=== PATIENT | male | born 1965 | race Two or more races ===

== ENCOUNTER → 2017-10-08 | Emergency (ER) | payer OTHER ==
[~2017-10-08] VITALS: Ht 172.7 cm; Wt 120.2 kg
== END | disposition home or self-care (01) ==
LOC: ER 11:40 → EDBD 11:58 → ER 11:58
DX: J11.1 Influenza due to unidentified influenza virus with other respiratory manifestations (principal); B34.9 Viral infection, unspecified

== ENCOUNTER 2018-02-24 07:33 | Emergency (ER) | payer OTHER ==
[~2018-02-24] VITALS: Ht 152.4 cm; Wt 127.0 kg
== END 2018-02-24 11:02 | disposition home or self-care (01) ==
LOC: ER 07:33 → EDBD 07:38 → ER 11:02
DX: J32.8 Other chronic sinusitis (principal); R51 Headache

== ENCOUNTER 2018-02-24 17:33 | Emergency (ER) | payer OTHER ==
[~2018-02-24] VITALS: Ht 170.2 cm; Wt 127.0 kg
== END 2018-02-24 18:19 | disposition home or self-care (01) ==
LOC: ER 17:33
DX: J01.00 Acute maxillary sinusitis, unspecified (principal)

== ENCOUNTER 2019-09-09 13:09 | Emergency (ER) | payer OTHER ==
[~2019-09-09] VITALS: Ht 152.4 cm; Wt 127.0 kg
== END 2019-09-09 18:23 | disposition home or self-care (01) ==
LOC: ER 13:09
DX: R07.89 Other chest pain (principal)

== ENCOUNTER 2023-10-12 10:19 | Emergency (ER) | payer OTHER ==
[~2023-10-12] VITALS: Ht 172.7 cm; Wt 117.9 kg
[2023-10-12] MEDS ORDERED: ZESTRIL2.5 MG PO (10:44)
[2023-10-12] MEDS ORDERED: GLUMETZA500 MG PO (10:44)
[2023-10-12] MEDS ORDERED: ADULT ASPIRIN81 MG PO (10:45)
[2023-10-12 11:40] LABS: HEMATOCRIT 52.8 % (39.0-48.0); MEAN CELL VOLUME 86.7 fL (80.0-100.00); MEAN CORPUSCULAR HEMOGLOBIN 29.6 pg (27.00-32.0); MEAN CORPUSCULAR HGB CONC 34.1 g/dl (32.0-36.0); PLATELET COUNT 324 K/uL (150-450); RED BLOOD COUNT 6.09 M/uL (4.00-6.00); RED CELL DISTRIBUTION WIDTH 13.8 % (11.5-14.5)
[2023-10-12 11:52] LABS: ERYTHROCYTE SEDIMENTATION RATE 7 mm/hr
[2023-10-12 12:05] LABS: ALBUMIN 3.8 gm/dL (3.4-5.0); BILIRUBIN TOTAL 0.62 mg/dL (0.3-1.2); CALCIUM 10.2 mg/dL (8.5-10.1); CREATININE SERUM 1.12 mg/dL (0.70-1.30); GFR 67.34; GLOBULINA 4.3 G/DL (2.4-3.5); TOTAL PROTEIN 8.1 gm/dL (6.4-8.2)
[2023-10-12] MEDS ORDERED: CLEOCIN HCL300 MG PO (14:34)
== END 2023-10-12 14:45 | disposition home or self-care (01) ==
LOC: ER 10:19 → EDBD 11:03 → ER 11:03
PROVIDERS: General Practice
DX: J32.9 Chronic sinusitis, unspecified (principal); R60.9 Edema, unspecified; I10 Essential (primary) hypertension; E11.9 Type 2 diabetes mellitus without complications; Z79.84 Long term (current) use of oral hypoglycemic drugs

== ENCOUNTER 2025-05-04 07:49 | Emergency (ER) | payer OTHER ==
[~2025-05-04] VITALS: Ht 172.7 cm; Wt 117.9 kg
[~2025-05-04 07:49] MED LIST: ADULT ASPIRIN81 MG PO; CLEOCIN HCL300 MG PO; GLUMETZA500 MG PO; ZESTRIL2.5 MG PO
[2025-05-04] MEDS ORDERED: LIPITOR20 MG PO (07:54)
[2025-05-04] MEDS ORDERED: MOUNJARO10 MG/0.5 SQ (07:55)
[2025-05-04] MEDS ORDERED: ACETAMINOPHEN 500 MG GEL..CAP PO ONE (08:30)
[2025-05-04] MEDS ORDERED: GUAIFENESIN 200 MG/10 ML BLIST.PACK PO ONE (08:30)
[2025-05-04 09:13] LABS: COVID-19 AG POSITIVE (NEGATIVE)
== END 2025-05-04 10:09 | disposition home or self-care (01) ==
LOC: ER 07:49
PROVIDERS: General Practice
DX: U07.1 COVID-19 (principal); J00 Acute nasopharyngitis [common cold]; I10 Essential (primary) hypertension; E11.9 Type 2 diabetes mellitus without complications; Z79.84 Long term (current) use of oral hypoglycemic drugs